=== PATIENT | male | born 1980 | race Caucasian/White ===

== ENCOUNTER 2021-08-14 20:50 | Inpatient (IN) | payer MEDICAID ==
[~2021-08-14] VITALS: Ht 177.8 cm; Wt 90.0 kg
--- NOTE | 2021-08-14 20:50 | NUR ---
BIB EMS C/O R LOWER EXTREMITY PAIN AND DEFORMITY TO LATERAL ASPECT OF THE ANKLE S/P GLF WHILE INTOXICATED. PER FAMILY NO HEAD TRAUMA OR KO. PT STATES 10/10 PAIN TO ANKLE PMS PRESENT AND EQUAL TO BILATERAL LOWER EXTREMITIES. PT ACUTELY INTOXICATED BUT ANSWERS QUESTIONS APPROPRIATELY AXO x4 BREATHING EVEN AND UNLABORED. CHANGED INTO A GOWN AND ALL V/S STABLE.
[2021-08-14] MEDS ORDERED: HYDROCODONE/APAP 5/325MG TABLET ONE (20:58)
[2021-08-14] MEDS ORDERED: KETOROLAC TROMETHAMINE INJ 30 MG/ML VIAL ONE (20:58)
[2021-08-14] MEDS ORDERED: HYDROCODONE/APAP 5/325MG TABLET PO ONE (21:00)
[2021-08-14] MEDS ORDERED: KETOROLAC TROMETHAMINE INJ 60 MG/2 ML VIAL IM ONE (21:00)
--- NOTE | 2021-08-14 21:03 | NUR ---
XRAY AT BEDSIDE
--- NOTE | 2021-08-14 22:00 | NUR ---
DR CARROLL SPEAKING WITH DR DONTAE MONTIEL
[2021-08-14] MEDS ORDERED: IV NS 0.9% 1,000 ML BAG IV ONE (22:30)
[2021-08-14 22:32] LABS: BASOPHILS # (AUTO) 0.1 K/uL (0.0-0.2); BASOPHILS % (AUTO) 0.4 % (0.0-2.0); EOSINOPHILS % (AUTO) 0.1 % (0.0-6.0); HEMATOCRIT 51 % (39-51); HEMOGLOBIN 17.1 g/dL (13.5-17.5); LYMPHOCYTES # (AUTO) 1.9 K/uL (0.8-4.8); LYMPHOCYTES % (AUTO) 10.8 % (20.0-44.0); MEAN CORPUSCULAR HGB CONC 34 g/dl (31.0-36.0); MEAN CORPUSCULAR VOLUME 92 fL (80-96); MONOCYTES # (AUTO) 0.6 K/uL (0.1-1.30); MONOCYTES % (AUTO) 3.1 % (2.0-12.0); NEUTROPHILS # (AUTO) 15.5 K/uL (1.8-8.9); NEUTROPHILS % (AUTO) 85.6 % (43.0-81.0); PLATELET COUNT (AUTO) 355 K/uL (150-450); RED BLOOD CELL COUNT(AUTO) 5.54 MIL/uL (4.5-6.0); WHITE BLOOD COUNT (AUTO) 18.1 K/uL (4.3-11.0)
[2021-08-14 22:41] LABS: CALCIUM, SERUM 9.1 mg/dL (8.5-10.1); POTASSIUM 4.1 mmol/L (3.5-5.1)
[2021-08-14 22:47] LABS: ALBUMIN 4.6 g/dL (3.4-5.0); BILIRUBIN,DIRECT 0.1 mg/dL (0.0-0.2); BILIRUBIN,TOTAL 0.3 mg/dL (0.2-1.0); TOTAL PROTEIN, SERUM 8.9 g/dL (6.4-8.2)
--- NOTE | 2021-08-14 22:49 | NUR ---
CALLED [facility] PAGED ISMAEL BRADLEY FOR ADMISSION
[2021-08-14] MEDS ORDERED: CT SWABBABLE VALVE TRANS SET 1 EA INFUS.SET MC ONE (23:19)
[2021-08-14] MEDS ORDERED: IV NS 0.9% 250 ML IV ONE (23:19)
[2021-08-14] MEDS ORDERED: IOHEXOL-300 100 ML VIAL IV ONE (23:19)
[2021-08-15] MEDS ORDERED: MAGNESIUM HYDROXIDE 30 ML UDC PO PRN
[2021-08-15] MEDS ORDERED: IV D5/0.45 NACL 1,000 ML IV PRN
[2021-08-15] MEDS ORDERED: Z GUARD REMEDY 2 OZ OINT TP PRN
[2021-08-15] MEDS ORDERED: ONDANSETRON HCL/PF 4 MG/2 ML VIAL IVP PRN
[2021-08-15] MEDS ORDERED: ACETAMINOPHEN 325 MG TABLET PO PRN
[2021-08-15] MEDS ORDERED: MAG HYDROX/AL HYDROX/SIMETH 30 ML UDC PO PRN
--- NOTE | 2021-08-15 01:30 | NUR ---
MS RN NOTES RECEIVED REPORT FROM JULIEN DEAN. PATIENT BEING ADMITTED TO MED SURG R/T [facility] IN [place] STRUCTURE AND SUBSEQUENT FRACTURE OF R DISTAL TIBA. PATIENT IS SCHEDULED FOR SURGERY AT [address] DIGGS AND HAS BEEN NPO SINCE BEING BROUGHT INTO ER. NO OPEN WOUNDS THROUGHOUT SKIN. SL TO L AC #20. PATIENT RECEIVED 1L OF NS IN ER. PATIENT PERSIAN SPEAKING ONLY. FAMILY MEMBER, MIKHAIL AVAILABLE TO TRANSLATE AND KNOWLEDGEABLE ABOUT PATIENT'S HX .
--- NOTE | 2021-08-15 01:31 | NUR ---
REPORT GIVEN TO DIMA
--- NOTE | 2021-08-15 02:10 | NUR ---
MS CAUSTIC STRENGTH INSPECTOR NOTES: RECEIVED PATIENT VIA BED. R LOWER EXTREMITY WITH SPLINT AND YVON WRAP INTACT. FAMILY (MIKHAIL) AVAILABLE FOR TRANSLATION. PATIENT ACKNOWLEDGES MD EXPLAINED ORIF PROCEDURE FOR RLE TOMORROW. PATIENT INFORMED OF CONSENTS R/T SURGERY, ANESTHESIA, BLOOD TRANSFUSION, AND KNOWLEDGE OF COVID. PATIENT AGREEABLE, VERBALIZES UNDERSTANDING, CONSENTS SIGNED AND COPIES GIVEN TO PATIENT. PATIENT STATES PAIN IS A 3/10 TO RLE. ALERT AND ORIENTED X 4. NAD. VSS. ORIENTED TO ROOM, CALL LIGHT, BED/TV REMOTE. DEMONSTRATES ABILITY TO USE CALL LIGHT AND VERBALIZE NEEDS EFFECTIVELY. CLEAN CATCH URINE SAMPLE OBTAINED AND SENT WITH LAB. PATIENT INSTRUCTED TO STAY IN BED R/T RLE FRACTURE AND TO UTILIZE CALL LIGHT SHOULD HE NEED ASSISTANCE. L AC IV FLUSHED. PATENT AND WITHOUT S/SX OF INFILTRATION. CALL LIGHT WITHIN REACH.
--- NOTE | 2021-08-15 02:15 | NUR ---
PT TRANSFERRED TO [facility] WITHOUT INCIDENT V/S STABLE AT TIME OF TRANSFER.
[2021-08-15 04:50] VITALS: BP 137/84
--- NOTE | 2021-08-15 07:16 | NUR ---
MS RN CLOSING NOTE: NO CHANGE FROM PREVIOUS ASSESSMENT. SURGICAL CHECKLIST 60% COMPLETE. ENDORSED AND REPORTED OFF TO AM SHIFT RN
--- NOTE | 2021-08-15 07:37 | NUR ---
RN OPENING NOTES Patient seen comfortably lying in bed, no apparent distress noted, respirations even and unlabored, no SOB, denies any pain or discomfort at this time, no grimacing. Call light left within reach, safety precautions in place, brakes locked, side rails up X 2, will monitor closely for any changes.
[2021-08-15 08:00] VITALS: BP 168/92
[2021-08-15] MEDS: PANTOPRAZOLE 40 MG VIAL IV SCH (08:28)
[2021-08-15] MEDS: NICOTINE PATCH (14MG) 14 MG PATCH.TD24 TD SCH (08:28)
[2021-08-15] MEDS: MORPHINE SULFATE INJ 2 MG/ML DISP.SYRIN IV PRN ×2 (08:28→23:59)
[2021-08-15 08:32] LABS: BASOPHILS % (AUTO) 0.2 % (0.0-2.0); EOSINOPHILS % (AUTO) 0.2 % (0.0-6.0); HEMATOCRIT 41 % (39-51); HEMOGLOBIN 13.8 g/dL (13.5-17.5); LYMPHOCYTES % (AUTO) 25.4 % (20.0-44.0); MEAN CORPUSCULAR HGB CONC 34 g/dl (31.0-36.0); MEAN CORPUSCULAR VOLUME 93 fL (80-96); MONOCYTES # (AUTO) 0.9 K/uL (0.1-1.30); MONOCYTES % (AUTO) 7.6 % (2.0-12.0); NEUTROPHILS % (AUTO) 66.6 % (43.0-81.0); PLATELET COUNT (AUTO) 317 K/uL (150-450)
[2021-08-15 08:37] LABS: CALCIUM, SERUM 8.3 mg/dL (8.5-10.1); CREATININE 0.8 mg/dL (0.6-1.3); MAGNESIUM 2.1 mg/dL (1.8-2.4); PHOSPHORUS 3.4 mg/dL (2.5-4.9); POTASSIUM 3.9 mmol/L (3.5-5.1)
[2021-08-15 09:59] LABS: BILIRUBIN,URINE NEGATIVE (NEGATIVE); COLOR,URINE YELLOW (YELLOW); LEUKOCYTE ESTERASE ,URINE NEGATIVE (NEGATIVE); NITRITE, URINE NEGATIVE (NEGATIVE); PROTEIN,URINE NEGATIVE (NEGATIVE); UGLUCOSE NEGATIVE (NEGATIVE); UROBILINOGEN,URINE 0.2 EU/dL (0.2)
[2021-08-15] MEDS ORDERED: MIDAZOLAM HCL 2 MG/2ML VIAL ONE (10:30)
[2021-08-15] MEDS ORDERED: ROCURONIUM BROMIDE 50 MG/5 ML ONE (10:30)
[2021-08-15] MEDS ORDERED: FENTANYL PF 250MCG/5ML AMPUL ONE (10:30)
[2021-08-15] MEDS ORDERED: ANESTHESIA TRAY IN PYXIS 1 EA TRAY MC ONE (10:32)
[2021-08-15] MEDS ORDERED: BUPIVACAINE 0.5 % PF 150 MG/30 ML VIAL ONE (10:32)
--- NOTE | 2021-08-15 10:37 | NUR ---
Patient left unit at 10:36am going to OR, stable condition, no apparent distress noted, vitals within normal limits. Consents and checklists filed in patient's chart.
[2021-08-15 10:51] LABS: BACTERIA,URINE None seen /HPF (None Seen); RBC,URINE 0-2 /HPF (0-2); SQUAMOUS EPITHELIAL CELL,UR Rare /HPF (None Seen); WBC,URINE NONE SEEN /HPF (0-3)
[2021-08-15 10:55] LABS: THYROID STIMULATING HORMONE 0.472 uIU/mL (0.358-3.74)
[2021-08-15] MEDS ORDERED: HYDROMORPHONE INJ 2 MG/ML DISP.SYRIN ONE (12:41)
[2021-08-15] MEDS ORDERED: HYDROGEN PEROXIDE 480 ML BOTTLE ONE (13:35)
[2021-08-15] MEDS ORDERED: SENNOSIDES 8.6 MG TABLET PO PRN (15:00)
[2021-08-15] MEDS ORDERED: DOCUSATE SODIUM 100 MG CAPSULE PO PRN (15:00)
[2021-08-15] MEDS ORDERED: HYDROCODONE/APAP 5/325MG TABLET PO PRN ×2 (15:00)
--- NOTE | 2021-08-15 15:10 | NUR ---
Patient came back from recovery room around 1510, S/P open reduction internal fixation of right fibula, dry dressings noted on patient's right lower extremity, no s/s of bleeding at this time, extremity warm to touch, no pallor or cyanosi noted with toes, no s/s of circulation impairment. No apparent distress noted with patient, patient stated he wants to take a nap and rest for now, denies any pain or discomfort at this time, vitals within normal limits, afebrile, call light left within reach, will monitor closely for any changes.
[2021-08-15 16:00] VITALS: BP 147/86
[2021-08-15] MEDS: ANCEF 1 GM/50 ML D5W IV SCH (18:02)
--- NOTE | 2021-08-15 18:27 | NUR ---
RN CLOSING NOTES Patient in bed, breathing even and unlabored, no SOB, no apparent distress noted. Pain medications given per MD order as needed when non pharmacological measures ineffective, tolerating well. Patient S/P ORIF of tibia, right lower extremity dressings, intact, no visible s/s of bleeding, no unusual odor at this time, no s/s of circulation impairment noted at this time, skin warm to touch, no pallor or cyanosis noted, pulse present during shift, no swelling noted at this time. All needs anticipated, kept clean and dry, call light left within reach, safety precautions in place, brakes locked, side rails up X 2, will endorse to next shift for continuity of care.
--- NOTE | 2021-08-15 19:40 | NUR ---
MS RN NOTES RECEIVED LAYING COMFORTABLY ON BED,S/P ORIF RIGHT TIBIA/FIBULA,DRESSING INTACT AND DRY.SALINE LOCK LEFT INTACT AND PATENT,IVF INFUSING WELL VIA IB PUMP.PAIN TOLERABLE AT THE MOMENT,CALL LIGHT IN REACH,NEEDS ANTICIPATED.
[2021-08-15 20:00] VITALS: BP 139/82
--- NOTE | 2021-08-15 23:59 | NUR ---
MS RN NOTES PAIN MANAGEMENT C/O PAIN ON RIGHT RIGHT LEG,MORPHINE 1MG IV GIVEN ORDERED
[2021-08-16] MEDS: ANCEF 1 GM/50 ML D5W IV SCH (02:53)
--- NOTE | 2021-08-16 06:37 | NUR ---
MS RN NOTES FAIRLY RESTED,PAIN ON RIGHT LEG IMPROVED,IV ABX TOLERATED WELL,NWB RIGHT LOWER LEG,PT EVAL,CALL LIGHT IN REACH,NEEDS ATTENDED.
--- NOTE | 2021-08-16 07:30 | NUR ---
MS RN OPENING NOTES RECEIVED PATIENT ON BED, AWAKE AND A/O X4. GREEK SPEAKING. ON ROOM AIR BREATHING EVENLY AND UNLABORED. NO SOB NOTED. NOT IN DISTRESS. WITH NO COMPLAINTS OF PAIN AT THIS TIME. WITH IV ACCESS AT LEFT AC G20 WITH IVF D5 1/2NS AT 75ML/HR INFUSING WELL. SAFETY MEASURES IN PLACE. CALL LIGHT WITHIN REACH. BED ON LOWEST AND LOCKED POSITION, SIDE RAILS UP X2. WILL CONTINUE TO MONITOR.
[2021-08-16] MEDS ORDERED: ENOXAPARIN SODIUM 40 MG/0.4 ML DISP.SYRIN SQ SCH (09:00)
[2021-08-16 09:14] VITALS: BP 147/92
[2021-08-16] MEDS: PANTOPRAZOLE 40 MG VIAL IV SCH (09:32)
[2021-08-16] MEDS: NICOTINE PATCH (14MG) 14 MG PATCH.TD24 TD SCH (09:32)
[2021-08-16] MEDS ORDERED: RIVA10TA PO (13:12)
[2021-08-16 16:02] VITALS: BP 145/99
[2021-08-16] MEDS: MORPHINE SULFATE INJ 2 MG/ML DISP.SYRIN IV PRN (16:26)
--- NOTE | 2021-08-16 17:10 | NUR ---
MS RN CLOSING NOTES PATIENT WAS SEEN BY DR. SINGH AND ORDERED PATIENT FOR DISCHARGE. PATIENT IS FOR DISCHARGE TO HOME. DISCHARGE INSTRUCTION AND EDUCATION PROVIDED TO PATIENT AND EXPLAINED MEDICATIONS AND PRESCRIPTIONS. PATIENT VERBALIZED UNDERSTANDING. DISCHARGE FORM AND BELONGINGS LIST FORM SIGNED BY PATIENT. ALL BELONGINGS ACCOUNTED FOR. NAME WRIST BAND AND IV LINE REMOVED. PATIENT WAS ACCOMPANIED TO THE LOBBY VIA WHEELCHAIR WITH FAMILY IN STABLE CONDITION AND LEFT VIA PRIVATE CAR. MD AND CHARGE NURSE ARE AWARE OF THE DISCHARGE.
[2021-08-17] MEDS ORDERED: PANTOPRAZOLE 40 MG TABLET.DR PO SCH (07:30)
== END 2021-08-16 17:00 | disposition home or self-care (01) | DRG 313 ==
LOC: ER 20:50 → MED 08-15 01:16
PROVIDERS: ADMIT Registered Nurse
PROC: 0QSJ04Z Reposition Right Fibula with Internal Fixation Device, Open Approach (ICD-10-PCS; principal; 2021-08-15)
PROC: 0QHG34Z Insertion of Internal Fixation Device into Right Tibia, Percutaneous Approach (ICD-10-PCS; 2021-08-15)
PROC: 0QSG06Z Reposition Right Tibia with Intramedullary Internal Fixation Device, Open Approach (ICD-10-PCS; 2021-08-15)
DX: S82.391A Other fracture of lower end of right tibia, initial encounter for closed fracture (principal); S82.241A Displaced spiral fracture of shaft of right tibia, initial encounter for closed fracture; S82.64XA Nondisplaced fracture of lateral malleolus of right fibula, initial encounter for closed fracture; F10.129 Alcohol abuse with intoxication, unspecified; Y90.6 Blood alcohol level of 120-199 mg/100 ml; F17.210 Nicotine dependence, cigarettes, uncomplicated; Z20.822 Contact with and (suspected) exposure to COVID-19; W01.0XXA Fall on same level from slipping, tripping and stumbling without subsequent striking against object, initial encounter; Y93.9 Activity, unspecified; Y92.009 Unspecified place in unspecified non-institutional (private) residence as the place of occurrence of the external cause
CPT/HCPCS: 36415; 73590-TC; 73610-TC; 73630-TC; 73702-TC; 80048-TC; 80076-TC; 81001; 83735-TC; 84100-TC; 84443-TC; 85025-TC; 85730-TC; 86850-TC; 87081-TC; 97116-TC; 97530-TC; A4217; A6209; C1713; C1769; C9113; G0378; G0480; J0690; J1100; J1170; J1650; J1885; J2250; J2270; J2405; J2704; J3010; J3490; J7030; J7050; J7060; Q9967